=== PATIENT | female | born 1960 | race Caucasian/White ===

== ENCOUNTER 2020-07-07 13:49 | Emergency (ER) | payer OTHER ==
[~2020-07-07 13:49] MED LIST: ASPIRIN EC81 MG PO; CERTAGEN1 EACH PO; CYMBALTA60 MG PO; GABAPENTIN800 MG PO; HYDROCODON-ACE1 EAC6 PO; LINZESS290 MCG PO; NAPROXEN500 MG PO; NEURONTIN100 MG PO; NORCO 10-325 T1 EACH PO; SYNTHROID75 MCG PO; TRAZODONE 100M100 MG PO; VICODIN 10/3251 EACH PO; ZOCOR20 MG PO
[2020-07-07 15:44] LABS: BASOPHIL 0.4 % (0-2); EOSINOPHIL 0.3 % (0-5); HCT 47.3 % (37.0-47.0); HGB 15.6 g/dl (12.5-16.0); LYMPHOCYTE 18.4 % (15-48); MCH 29.3 pg (25.0-31.0); MCV 88.9 fL (78.0-100.0); MONOCYTE 9.1 % (0-12); MPV 9.7 fL (6.0-9.5); NRBC 0; PLT 410 K/uL (150-400); RBC 5.32 M/uL (4.20-5.40); RDW 13.2 % (11.5-14.0); WBC 11.8 K/uL (4.0-10.5)
[2020-07-07 16:08] LABS: ALBUMIN 3.4 g/dL (3.4-5.0); BILIRUBIN - TOTAL 0.7 mg/dL (0.2-1.0); BUN/CREAT RATIO (CALC) 22.1 RATIO; CREATININE 0.86 mg/dL (0.51-0.95); GLOBULIN (CALCULATION) 4.5 g/dL; TOTAL PROTEIN 7.9 g/dL (6.4-8.2)
[2020-07-07 16:47] LABS: BILIRUBIN NEGATIVE (NEGATIVE); BLOOD TRACE-INTACT Ery/uL (NEGATIVE); CLARITY CLEAR (CLEAR); COLOR YELLOW (YELLOW); GLUCOSE (U) NORMAL (NORMAL); LEUKOCYTES 2+ Leu/uL (NEGATIVE); NITRITE NEGATIVE (NEGATIVE); PROTEIN NEGATIVE (NEGATIVE); UROBILINOGEN 0.2 mg/dL (0.2-1.0)
[2020-07-07 16:56] LABS: BACTERIA TRACE; URINARY WBC 20-50
[2020-07-07 16:57] LABS: MUCOUS TRACE
[2020-09-22] MEDS ORDERED: HYDROMORPHONE HC2 MG PO (11:51)
[2020-09-22] MEDS ORDERED: HYDROCODON-ACE1 EAC6 PO (11:51)
[2020-10-07] MEDS ORDERED: GABAPENTIN800 MG PO (17:19)
[2020-10-07] MEDS ORDERED: HYDROCODON-ACE1 EAC6 PO (17:42)
[2020-11-12] MEDS ORDERED: NAPROXEN500 MG PO (08:17)
[2020-12-16] MEDS ORDERED: HYDROCODON-ACE1 EAC6 PO (18:14)
== END 2020-07-07 19:06 | disposition home or self-care (01) ==
LOC: FER 13:49
PROVIDERS: Nurse Practitioner Family
DX: D49.511 Neoplasm of unspecified behavior of right kidney (principal); R10.84 Generalized abdominal pain; G89.29 Other chronic pain; Z79.891 Long term (current) use of opiate analgesic; Z90.49 Acquired absence of other specified parts of digestive tract; Z88.5 Allergy status to narcotic agent; Z87.19 Personal history of other diseases of the digestive system
CPT/HCPCS: 36415; 80053; 81001; 82150; 83690; 85025; 87088; G0480; J1170; J2405; J7030; Q9967

== ENCOUNTER 2020-11-12 18:30 | Emergency (ER) | payer OTHER ==
[~2020-11-12 18:30] MED LIST changes: +HYDROMORPHONE HC2 MG PO
[2020-11-12 19:59] LABS: BASOPHIL 0.8 % (0-2); BILIRUBIN NEGATIVE (NEGATIVE); BLOOD 1+ Ery/uL (NEGATIVE); CLARITY CLEAR (CLEAR); COLOR YELLOW (YELLOW); EOSINOPHIL 3.5 % (0-5); GLUCOSE (U) NORMAL (NORMAL); HCT 40.9 % (37.0-47.0); HGB 13.7 g/dl (12.5-16.0); LEUKOCYTES TRACE Leu/uL (NEGATIVE); LYMPHOCYTE 25.1 % (15-48); MCH 29.7 pg (25.0-31.0); MCHC 33.5 g/dL (32.0-36.0); MCV 88.7 fL (78.0-100.0); MONOCYTE 8.8 % (0-12); MPV 9.2 fL (6.0-9.5); NEUTROPHIL 61.1 % (41-80); NITRITE NEGATIVE (NEGATIVE); NRBC 0; PLT 327 K/uL (150-400); PROTEIN NEGATIVE (NEGATIVE); RBC 4.61 M/uL (4.20-5.40); RDW 13.4 % (11.5-14.0); UROBILINOGEN 0.2 mg/dL (0.2-1.0); WBC 7.5 K/uL (4.0-10.5); pH 5.5 (5.0-9.0)
[2020-11-12 20:11] LABS: BACTERIA TRACE; SQUAMOUS EPITHELIAL CELLS RARE; URINARY RBC RARE; URINARY WBC RARE
[2020-11-12 20:19] LABS: ALBUMIN 3.5 g/dL (3.4-5.0); BILIRUBIN - TOTAL 0.4 mg/dL (0.2-1.0); BUN/CREAT RATIO (CALC) 18.7 RATIO; CREATININE 0.75 mg/dL (0.51-0.95); GLOBULIN (CALCULATION) 3.7 g/dL; TOTAL PROTEIN 7.2 g/dL (6.4-8.2)
[2020-11-12 20:23] LABS: LACTIC ACID 1.4 mmol/L (0.4-1.9)
[2020-12-16] MEDS ORDERED: HYDROCODON-ACE1 EAC6 PO (18:14)
[2021-01-20] MEDS ORDERED: HYDROCODON-ACE1 EAC6 PO (16:52)
[2021-03-18] MEDS ORDERED: HYDROCODON-ACE1 EAC6 PO (18:02)
== END 2020-11-12 22:00 | disposition home or self-care (01) ==
LOC: FER 18:30
PROVIDERS: Nurse Practitioner Family
DX: R10.31 Right lower quadrant pain (principal); R11.2 Nausea with vomiting, unspecified; R63.0 Anorexia; E78.5 Hyperlipidemia, unspecified; Z85.528 Personal history of other malignant neoplasm of kidney; Z90.710 Acquired absence of both cervix and uterus; Z88.5 Allergy status to narcotic agent; Z90.5 Acquired absence of kidney; Z79.899 Other long term (current) drug therapy
CPT/HCPCS: 36415; 80053; 81001; 83605; 85025; 87088; J2270; J2405; J7030; Q9967

== ENCOUNTER → 2021-11-02 | Day surgery (SDC) | payer OTHER ==
[~2021-11-02] VITALS: Ht 162.6 cm; Wt 91.2 kg
[~2021-11-02] MED LIST changes: +ATORVASTATIN CA20 MG PO; +DULOXETINE HCL60 MG PO; +NORCO 5-325 TA1 EACH PO
[2021-11-02 09:48] LABS: HCT 42.9 % (37.0-47.0); HGB 13.9 g/dl (12.5-16.0); MCH 28.8 pg (25.0-31.0); MCHC 32.4 g/dL (32.0-36.0); MPV 9.4 fL (6.0-9.5); RBC 4.82 M/uL (4.20-5.40); RDW 13.5 % (11.5-14.0); WBC 7.6 K/uL (4.0-10.5)
[2021-11-02 09:55] LABS: ALBUMIN 3.3 g/dL (3.4-5.0); BILIRUBIN - TOTAL 0.5 mg/dL (0.2-1.0); BUN/CREAT RATIO (CALC) 13.8 RATIO; CREATININE 0.8 mg/dL (0.51-0.95); GLOBULIN (CALCULATION) 3.6 g/dL; TOTAL PROTEIN 6.9 g/dL (6.4-8.2)
== END | disposition home or self-care (01) ==
LOC: FAS 08:38
PROVIDERS: Surgery
DX: K64.1 Second degree hemorrhoids (principal); K64.4 Residual hemorrhoidal skin tags; K62.5 Hemorrhage of anus and rectum; E03.9 Hypothyroidism, unspecified; F41.9 Anxiety disorder, unspecified; F32.A Depression, unspecified; Z88.5 Allergy status to narcotic agent; Z79.82 Long term (current) use of aspirin; Z79.891 Long term (current) use of opiate analgesic; Z79.899 Other long term (current) drug therapy; Z90.49 Acquired absence of other specified parts of digestive tract
CPT/HCPCS: 36415; 80053; J1100; J2250; J7120

== ENCOUNTER → 2022-01-04 | Day surgery (SDC) | payer MEDICARE ==
[~2022-01-04] VITALS: Ht 162.6 cm; Wt 99.8 kg
[~2022-01-04] MED LIST changes: +DITROPAN5 MG PO; +LINZESS145 MCG PO; +NEURONTIN800 MG PO; +ULTRAM50 MG PO
== END | disposition home or self-care (01) ==
LOC: FAS 07:50
DX: C50.412 Malignant neoplasm of upper-outer quadrant of left female breast (principal); Z17.0 Estrogen receptor positive status [ER+]; M17.0 Bilateral primary osteoarthritis of knee; M19.012 Primary osteoarthritis, left shoulder; E78.00 Pure hypercholesterolemia, unspecified; E78.5 Hyperlipidemia, unspecified; J45.909 Unspecified asthma, uncomplicated; F41.9 Anxiety disorder, unspecified; F32.A Depression, unspecified; Z88.5 Allergy status to narcotic agent; Z79.899 Other long term (current) drug therapy; Z87.891 Personal history of nicotine dependence; Z80.3 Family history of malignant neoplasm of breast
CPT/HCPCS: 76098; A9541; J0690; J1100; J1644; J1885; J2250; J2370; J2405; J2704; J2765; J3010; J7120; Q9968